=== PATIENT | female | born 1940 | race Caucasian/White ===

== ENCOUNTER 2019-06-26 09:17 | Outpatient (CLI) | payer MEDICARE, SELFPAY ==
--- NOTE | 2019-06-26 09:24 | XR_ITS ---
WS: [id number] Right knee, 3 views, 06/26/2019 Clinical Data: RIGHT KNEE PAIN Comparison: None. Findings: Patient has a right knee arthroplasty in position. The components appear to be in good position. No l oosening is seen. There are periarticular calcifications noted about the knee. The patella shows an a nterior superior spur. There is there are vascular calcifications medial to the medial femoral condyl e. No fractures or dislocations are seen XR/XR knee RT 3V* [id number] Impression: 1. Right knee arthroplasty. 2. Anterior superior patellar spur. 3. Periarticular calcifications some of which are vascular and some may be syno vial.
== END 2019-06-26 09:18 | disposition home or self-care (01) ==
LOC: RAD 09:22
PROVIDERS: Family Provider Family Medicine; PCP Family Medicine; Visit Provider Family Medicine
DX: M25.861 Other specified joint disorders, right knee (principal); M77.8 Other enthesopathies, not elsewhere classified; Z96.651 Presence of right artificial knee joint; M25.561 Pain in right knee
CPT/HCPCS: 73562

== ENCOUNTER → 2019-07-30 15:20 | Outpatient (BNVA) | payer MEDICARE, SELFPAY | PROVIDERS: Family Provider Family Medicine; PCP Family Medicine; Referring Provider Family Medicine; Visit Provider Orthopaedic Surgery | DX: M25.551 Pain in right hip (principal); M16.11 Unilateral primary osteoarthritis, right hip; Z96.651 Presence of right artificial knee joint | CPT/HCPCS: 72170 ==

== ENCOUNTER → 2019-08-15 09:25 | Outpatient (BNVA) | payer MEDICARE, SELFPAY | PROVIDERS: Family Provider Family Medicine; PCP Family Medicine; Referring Provider Orthopaedic Surgery; Visit Provider Anesthesiology Pain Medicine | DX: M16.11 Unilateral primary osteoarthritis, right hip (principal); M54.9 Dorsalgia, unspecified; Z96.651 Presence of right artificial knee joint; Z79.891 Long term (current) use of opiate analgesic | CPT/HCPCS: 99203; 99999 ==

== ENCOUNTER 2020-07-07 12:40 | Emergency (ER) | payer MEDICARE, SELFPAY ==
[2020-07-07 12:56] VITALS: BP 151/84; PULSE 68; RESP 14; TEMP 36.6; O2SAT 98; BMI 28.2
--- NOTE | 2020-07-07 13:11 | XR_ITS ---
WS: [id number] Exam: XR chest 1V portable [id number] Date/Time of Exam: 07/07/2020 1:25 PM Reason For Exam: sob No priors. The lungs are clear and fully inflated. Normal cardiomediastinal structures and bony eleme nts. No pleural effusions. XR/XR chest 1V portable [id number] IMPRESSION: 1. No acute cardiopulmonary finding.
--- NOTE | 2020-07-07 13:11 | ECG_ITS ---
[facility] Test Date: 2020-07-07 Pat Name: Idania Okeefe Department: Room: Gender: Female Can Tender: SVETLANA ALEXANDREB: 1940 Requested By: Juanito John Order Number: [id number] Reading MD: EUNICE GRANADOS Measurements Intervals [place] Rate: 67 P: 54 [place]: 144 QRS: 24 QRSD: 85 T: 8 QT: 397 QTc: 421 Interpretive Statements SINUS RHYTHM NONSPECIFIC T-WAVE ABNORMALITY No previous ECG available for comparison Electronically Signed On 07-07-2020 18:35:14 SHEEP RANCHER by EUNICE GRANADOS [id number]
--- NOTE | 2020-07-07 13:20 | USCV_ITS ---
Maldonado Idania Age: 80 Gender: F : 1940 Exam Date: 07/07/2020 13:51 Ordering Phys: Juanito John Technologist: Glo Regalado Exam Location: [facility] [place] Indication: PAIN IN RT CALF HISTORY: PAIN IN RT CALF PROCEDURES: Venous duplex imaging was performed in only the right lower extremity. The following venous structures were evaluated: common femoral vein, profunda vein, proximal portion of the greater saphenous vein, superficial femoral vein, and the popliteal vein. In addition, the posterior tibial and peroneal trunk and calf area were evaluated. Serial compression, augmentation maneuvers, and spectral Doppler flow evaluation were performed. FINDINGS: No DVT seen in any vessel examined CONCLUSIONS No evidence of right lower extremity DVT. Aravind Grimes MD (Electronically Signed) Final Date: 07 July 2020 16:52 S
--- NOTE | 2020-07-07 14:27 | ED_ITS ---
HPI - General Adult General: Chief complaint: General Medical Stated complaint: phy ref/sob Time Seen by Provider: 07/07/20 13:38 History of Present Illness: HPI narrative: 80-year-old female who presents to the emergency room complaining of right leg swelling. She had a revision of a right knee arthroplasty on May 02 has had swelling in the leg since she also is having shortness of breath although she denies any chest pain. States that minimal exertion she gets extremely short of breath. She not had any fever sweats chills nausea vomiting or diarrhea no anosmia. Onset (ago): week(s) Location: chest Radiation: non-radiation Severity: moderate Relieving factors: rest Exacerbating factors: movement Associated symptoms: Reports diaphoresis, dyspnea and short of breath; Deny chest pain, confusion, cough, decreased appetite, fevers/chills, headache(s), malaise, nausea, rash, palpitations, seizures, syncope, vomiting or weakness Treatments prior to arrival: none Review of Systems Const: Reports: diaphoresis; Denies: malaise ENMT: Denies: throat pain, ear or mastoid pain, nasal discharge or nasal congestion Card: Denies: chest pain, palpitations or syncope Resp: Reports: dyspnea GI: Denies: nausea or vomiting : Denies: flank pain, difficulty voiding, dysuria, urinary frequency or urinary urgency Skin/Breast: Denies: rash Neuro: Denies: headache(s) or confusion PFS ED PFSH: Family History Father Cancer Social History Smoking and tobacco status: never smoked Alcohol intake: never Caregiver/support person: Yes Lives independently: Yes History of recent travel: No Physical Exam Const: COMMON NORMALS: no acute distress GENERAL APPEARANCE: cooperative and comfortable ORIENTATION/CONSCIOUSNESS: Yes awake, Yes oriented to person, Yes oriented to place and Yes oriented to time HENMT: COMMON NORMALS: normocephalic, atraumatic, hearing grossly normal bilaterally, external ears normal, EAC's normal, TM's normal bilaterally, Normal nasal mucous membranes and turbinates present, moist oral mucous membranes and oropharynx normal HEAD & SCALP: normocephalic and atraumatic NOSE: Normal nasal mucous membranes and turbinates present EXTERNAL EAR: Yes external ears normal EXTERNAL AUDITORY CANAL: EAC's normal TYMPANIC MEMBRANE: TM's normal bilaterally Eye: COMMON NORMALS: Equal, round and reactive pupils present, EOMs intact bilaterally, conjunctivae normal and no scleral icterus CONJUNCTIVA: Yes conjunctivae normal PUPIL: Yes Equal, round and reactive pupils present Neck/C-Spine: COMMON NORMALS: full ROM, no lymphadenopathy, supple and no JVD Lymph: LYMPHATIC: no lymphadenopathy noted and no lymphedema noted Resp: COMMON NORMALS: normal respiratory effort, No retractions, No use of accessory muscles and clear to auscultation bilaterally AUSCULTATION: clear to auscultation bilaterally Cardio: COMMON NORMALS: no JVD, regular rate, regular rhythm and No murmurs present (Cardio) RATE: regular rate RHYTHM: regular rhythm GI: COMMON NORMALS: Soft to palpation and No hepatosplenomegaly present AUSCULTATION: Yes normoactive bowel sounds PALPATION: Yes Soft to palpation, No Tenderness to palpation present (GI), No Guarding due to palpation present (GI) and Yes No hepatosplenomegaly present Extremity: COMMON NORMALS: normal to inspection, capillary refill normal, no clubbing, cyanosis or edema, no calf tenderness and no pedal edema Neuro: SENSORIUM/ORIENTATION: Yes oriented to person, Yes oriented to place and Yes oriented to time Skin: COMMON NORMALS: no rashes or lesions noted GENERAL SKIN EXAM: no rashes or lesions noted Course 2 Vital Signs: Vital signs: Vital Signs Temperature 97.9 F 07/07/20 12:56 Pulse Rate 57 L 07/07/20 18:22 Respiratory Rate 18 07/07/20 18:22 Blood Pressure 149/95 07/07/20 18:22 Pulse Oximetry 97 07/07/20 18:22 MDM - General Adult MDM Narrative: Medical decision making narrative: Venous duplex negative. D- dimer is elevated so we did do a CTA of the chest no PE noted. We will go ahead and discharge her home we will can set her up for a sestamibi stress test return if has further problems. Lab Data: Labs: Lab Results 07/07/20 07/07/20 07/07/20 Range/Units 14:25 14:25 14:25 WBC 7.8 (4.0-10.0) 10^3/ uL RBC 4.35 (4.1-5.3) 10^6/u L Hgb 12.5 (11.5-15.3) g/dL Hct 41.6 (37.0-47.0) % MCV 95.6 (81-99) fL MCH 28.7 (28.0-34.0) pg MCHC 30.0 (30.0-36.0) g/dL RDW 13.1 (12.1-15.1) % Plt Count 169 (130-400) 10^3/c mm MPV 11.0 H (7.4-10.4) fL Neut % (Auto) 51.5 % Lymph % (Auto) 37.9 % [place] % (Auto) 5.6 % Eos % (Auto) 4.0 % Baso % (Auto) 1.0 % Neut # (Auto) 4.02 (1.8-7.7) 10^3/u L Lymph # (Auto) 3.0 (0.8-4.8) 10^3/u L [place] # (Auto) 0.4 (0.2-0.9) 10^3/u L Eos # (Auto) 0.3 (0.0-0.8) 10^3/u L Baso # (Auto) 0.1 (0.0-0.1) 10^3/u L Nucleated RBC % (a uto) 0 % Nucleated RBCs # 0.0 /100WBC D-Dimer 3.42 H (0-0.59) ug/mIFE U Sodium 141 (136-145) mmol/L Potassium 4.4 (3.5-5.1) mmol/L Chloride 104 (98-107) mmol/L Carbon Dioxide 26 (22-29) mmol/L Anion Gap 15.4 (5-19) BUN 18 (8-23) mg/dL Creatinine 0.6 (0.5-0.9) mg/dL GFR Calculation Not Reportable Glucose 96 (65-115) mg/dL Calculated Osmolal ity 294 (285-295) mOsm/k g Calcium 9.3 (8.5-10.5) mg/dL Total Bilirubin 1.1 (0.15-1.2) mg/dL AST 15 (0-32) U/L ALT 8 (0-33) U/L Alkaline Phosphata se 68 (35-105) IU/L Troponin T Baselin e (0-10) ng/L Troponin T 120 Min upper [place] (0-10) ng/L Delta Troponin T (0-10) ABS# NT-Pro-B Natriuret Pep 219 (0-450) pg/mL Total Protein 6.8 (6.6-8.7) g/dL Albumin 4.3 (3.5-5.2) g/dL Globulin 2.5 (1.3-4.6) g/dL 07/07/20 07/07/20 Range/Units 14:25 15:20 WBC (4.0-10.0) 10^3/ uL RBC (4.1-5.3) 10^6/u L Hgb (11.5-15.3) g/dL Hct (37.0-47.0) % MCV (81-99) fL MCH (28.0-34.0) pg MCHC (30.0-36.0) g/dL RDW (12.1-15.1) % Plt Count (130-400) 10^3/c mm MPV (7.4-10.4) fL Neut % (Auto) % Lymph % (Auto) % [place] % (Auto) % Eos % (Auto) % Baso % (Auto) % Neut # (Auto) (1.8-7.7) 10^3/u L Lymph # (Auto) (0.8-4.8) 10^3/u L [place] # (Auto) (0.2-0.9) 10^3/u L Eos # (Auto) (0.0-0.8) 10^3/u L Baso # (Auto) (0.0-0.1) 10^3/u L Nucleated RBC % (a uto) % Nucleated RBCs # /100WBC D-Dimer (0-0.59) ug/mIFE U Sodium (136-145) mmol/L Potassium (3.5-5.1) mmol/L Chloride (98-107) mmol/L Carbon Dioxide (22-29) mmol/L Anion Gap (5-19) BUN (8-23) mg/dL Creatinine (0.5-0.9) mg/dL GFR Calculation Glucose (65-115) mg/dL Calculated Osmolal ity (285-295) mOsm/k g Calcium (8.5-10.5) mg/dL Total Bilirubin (0.15-1.2) mg/dL AST (0-32) U/L ALT (0-33) U/L Alkaline Phosphata se (35-105) IU/L Troponin T Baselin e 9 (0-10) ng/L Troponin T 120 Min upper [place] 10.53 H (0-10) ng/L Delta Troponin T 1.53 (0-10) ABS# NT-Pro-B Natriuret Pep (0-450) pg/mL Total Protein (6.6-8.7) g/dL Albumin (3.5-5.2) g/dL Globulin (1.3-4.6) g/dL Discharge Plan Discharge Patient Disposition: Home Clinical Impression: Exertional dyspnea Condition: Stable Prescriptions: No Action pravastatin 20 mg tablet 20 mg PO DAILY@17 RF: 0 trazodone 150 mg tablet 150 mg PO BEDTIME@19 RF: 0 hydrocodone-acetaminophen 5-325 mg tablet 1 tab PO Q4H PRN (Reason: Pain) RF: 0 Travatan Z 0.004 % drops 1 drp ophthalmic (eye) BEDTIME RF: 0 Combigan 0.2-0.5 % drops 1 drp ophthalmic (eye) BID@07,17 RF: 0 Discharge Orders: Discharge ED (Routine); Ordered 07/07/20 Ordered By: Deven Pratt Referrals: Jer Cooper DO [Primary Care Provider] - Discharge Diet: Usual diet Discharge Activity: Increase activity as tolerated Coding Level of Care Code ED Seed Sales Manager for Chg Fwd Exam Comprehensive
[2020-07-07 14:42] LABS: Basophils # 0.1 10^3/uL (0.0-0.1); Eosinophils # 0.3 10^3/uL (0.0-0.8); Hematocrit 41.6 % (37.0-47.0); Hemoglobin 12.5 g/dL (11.5-15.3); Lymphocytes % 37.9 %; Mean Corpuscular Hemoglobin 28.7 pg (28.0-34.0); Mean Corpuscular Volume 95.6 fL (81-99); Monocytes # 0.4 10^3/uL (0.2-0.9); Monocytes % 5.6 %; Neutrophils # 4.02 10^3/uL (1.8-7.7); Neutrophils % 51.5 %; Nucleated Red Blood Cells % 0 %; Platelet Count 169 10^3/cmm (130-400); Red Blood Count 4.35 10^6/uL (4.1-5.3); Red Cell Distribution Width 13.1 % (12.1-15.1); White Blood Count 7.8 10^3/uL (4.0-10.0)
[2020-07-07 15:05] LABS: D Dimer 3.42 ug/mIFEU (0-0.59)
[2020-07-07 15:12] LABS: Troponin(5th) Baseline 9 ng/L (0-10)
--- NOTE | 2020-07-07 15:12 | ECG_ITS ---
[facility] Test Date: 2020-07-07 Pat Name: Idania Okeefe Department: Room: Gender: Female Er Nurse: : 1940 Requested By: Juanito John Order Number: [id number] Reading MD: EUNICE GRANADOS Measurements Intervals [place] Rate: 54 P: 22 [place]: 139 QRS: 10 QRSD: 89 T: 10 QT: 440 QTc: 420 Interpretive Statements SINUS BRADYCARDIA Compared to ECG 07/07/2020 12:54:51 Sinus rhythm no longer present T-wave abnormality no longer present Electronically Signed On 07-07-2020 18:37:49 BUTTONHOLE MAKER HAND by EUNICE GRANADOS [id number]
--- NOTE | 2020-07-07 15:18 | CTR_ITS ---
PROCEDURE INFORMATION: Exam: CT Angiography Chest With Contrast Exam date and time: 07/07/2020 5:33 PM Age: 80 years old Clinical indication: Shortness of breath; Additional info: Dyspnea TECHNIQUE: Imaging protocol: Computed tomographic angiography of the chest with intravenous contrast. 3D rendering (Not supervised by radiologist): MIP and/or 3D reconstructed images were created by the technologist. Radiation optimization: All CT scans at this facility use at least one of these dose optimization techniques: automated exposure control; mA and/or kV adjustment per patient size (includes targeted exams where dose is matched to clinical indication); or iterative reconstruction. Contrast material: OMNI 350; Contrast volume: 67 ml; Contrast route: INTRAVENOUS (IV); COMPARISON: CR XR chest 1V portable [id number] 07/07/2020 1:16 PM RADIATION DOSE METRICS: Total DLP (mGy-cm): 565.15 FINDINGS: Pulmonary arteries: Normal. No pulmonary emboli. Aorta: Unremarkable. No aortic aneurysm. No aortic dissection. Lungs: 4 mm nodule in the right upper lobe, image 17. Calcified granuloma in the left lower lobe. The lungs are otherwise clear. Pleural space: Unremarkable. No pneumothorax. No pleural effusion. Heart: Unremarkable. No cardiomegaly. No pericardial effusion. Mediastinal space: Hiatal hernia. Lymph nodes: Unremarkable. No enlarged lymph nodes. Gallbladder and bile ducts: Cholecystectomy. Prominence of the extrahepatic bile ducts is most likely reservoir effect. Bones/joints: Unremarkable. No acute fracture. Soft tissues: Unremarkable. CT/CT angio chest PE protcl [id number] IMPRESSION: 1. No evidence for pulmonary embolus. 2. 4 mm right upper lobe nodule. For patients at low risk (minimal or absent history of smoking and of other known risk factors), no routine follow-up is indicated. For patients at high risk (history of smoking or of other known risk factors), consider optional CT Chest at 12 months. (Reference: Nhan) References: Nhan Sommer et al. Guidelines for Management of Incidental Pulmonary Nodules Detected on CT Images: From the Fleischner Society 2017. Radiology. 2017;284(1):228-243. Radiation Dose CTDIVOL = (mGy): DLP = 565.15 (mGy-cm)
[2020-07-07 15:20] LABS: Alanine Aminotransferase 8 U/L (0-33); Albumin Level 4.3 g/dL (3.5-5.2); Alkaline Phosphatase 68 IU/L (35-105); Anion Gap 15.4 (5-19); Aspartate Amino Transferase 15 U/L (0-32); Blood Urea Nitrogen 18 mg/dL (8-23); Calcium 9.3 mg/dL (8.5-10.5); Carbon Dioxide 26 mmol/L (22-29); Chloride 104 mmol/L (98-107); Globulin 2.5 g/dL (1.3-4.6); Glucose 96 mg/dL (65-115); NT Pro B Type Natriuretic Pept 219 pg/mL (0-450); Osmolality Calculated 294 mOsm/kg (285-295); Potassium 4.4 mmol/L (3.5-5.1); Sodium 141 mmol/L (136-145); Total Bilirubin 1.1 mg/dL (0.15-1.2); Total Protein 6.8 g/dL (6.6-8.7)
[2020-07-07 17:18] LABS: Troponin 5 2HR 10.53 ng/L (0-10); Troponin 5 2HR Delta 1.53 ABS# (0-10)
[2020-07-07 17:27] VITALS: BP 143/101; PULSE 78; RESP 20; O2SAT 97
[2020-07-07] MEDS: iohexol 350 mg/mL 100 mL Btl IV (17:43)
[2020-07-07 18:09] VITALS: BP 149/95; PULSE 57; RESP 18; O2SAT 97
[2020-07-07 18:22] VITALS: BP 149/95; PULSE 57; RESP 18; O2SAT 97
--- NOTE | 2020-07-08 10:23 | DCPLANNER ---
international accounting manager had message to schedule an outpatient stress test. international accounting manager faxed order to centralized scheduling, will call for appointment information.
--- NOTE | 2020-07-15 15:19 | DCPLANNER ---
Patient has a follow up appointment scheduled for , July 24, 2020 at 9:15 for an out patient stress test.
--- NOTE | 2020-09-03 12:39 | DCPLANNER ---
Patient had a follow up appointment scheduled for 07.24.20 for a stress test - patient did attend appointment.
== END 2020-07-07 18:24 | disposition home or self-care (01) ==
PROVIDERS: Nurse Practitioner Family; Emergency Provider Family Medicine; PCP Family Medicine
DX: R06.09 Other forms of dyspnea (principal)
CPT/HCPCS: 12345; 36415; 71045; 71275; 80053; 83880; 84484; 85025; 85378; 93005; 93971; 99282; 99283; Q9967

== ENCOUNTER 2020-08-06 10:39 | Outpatient (CLI) | payer MEDICARE, SELFPAY ==
--- NOTE | 2020-08-06 10:46 | USCV_ITS ---
Idania Okeefe Age: 80 Gender: F : 1940 Exam Date: 08/06/2020 11:01 Ordering Phys: Jer Cooper DO Technologist: Angelica Benitez Exam Location: [facility] [place] Indication: FATIGUE/DYSPNEA BP: 142 / 64 HR: 57 Rhythm: Sinus Technical Quality: Adequate MEASUREMENTS (Male / Female) Normal Values 2D ECHO LV Diastolic Diameter PLAX 4.3 cm 4.2 - 5.9 / 3.9 - 5.3 cm LV Systolic Diameter PLAX 3.3 cm LV Chamber Size 2.5 cm IVS Diastolic Thickness 1.1 cm 0.6 - 1.0 / 0.6 - 0.9 cm IVS Systolic Thickness 1.7 cm LVPW Diastolic Thickness 1.6 cm 0.6 - 1.0 / 0.6 - 0.9 cm LVPW Systolic Thickness 1.6 cm RV Chamber Size 2.4 cm LVOT Diameter 2.1 cm LV Ejection Fraction 2D Teich 46.2 % LV Ejection Fraction MOD 2C 54.0 % LV Ejection Fraction 2C AL 55.5 % LA Diameter 3.6 cm LA Width 3.5 cm LA Height 4.6 cm RA Width 2.3 cm RA Height 3.8 cm Aorta at Sinotubular Diameter 2.4 cm M-MODE LV Diastolic Diameter MM 4.1 cm 4.2 - 5.9 / 3.9 - 5.3 cm LV Systolic Diameter MM 2.6 cm LV Ejection Fraction MM Teich 66.2 % IVS Diastolic Thickness MM 1.1 cm 0.6 - 1.0 / 0.6 - 0.9 cm IVS Systolic Thickness MM 1.4 cm LVPW Diastolic Thickness MM 1.4 cm 0.6 - 1.0 / 0.6 - 0.9 cm LVPW Systolic Thickness MM 1.3 cm Aortic Annulus Diameter 3.2 cm LA Ao Ratio MM 1.1 MV E Point Septal Separation 0.7 cm DOPPLER AV Peak Velocity 125.0 cm/s LVOT Peak Velocity 104.0 cm/s AV Area Cont Eq vti 3.0 cm squared AV Area Cont Eq pk 2.8 cm squared MV Area PHT 3.5 cm squared Mitral E to A Ratio 0.7 MV E' Velocity 42.0 cm/s Mitral E to MV E' Ratio 6.3 Mitral E to LV E' Lateral Ratio 6.6 Mitral E to LV E' Septal Ratio 6.0 TR Peak Velocity 189.6 cm/s TR Peak Gradient 14.4 mmHg TV Peak E Velocity 71.0 cm/s Right Atrial Pressure 3.0 mmHg Pulmonary Artery Systolic Pressu 17.4 mmHg PV Peak Velocity 118.0 cm/s RV Acceleration Time 0.1 s RV Ejection Time 0.5 s RV AcT/ET 0.2 FINDINGS Left Ventricle Normal left ventricular size and systolic function, EF 56 %. No regional wall motion abnormalities. Grade III/IV diastolic dysfunction (restrictive filling pattern), severely elevated filling pressures. Right Ventricle Normal right ventricular size and systolic function. Transverse echodense structures towards the apex of the right ventricle Right Atrium The right atrium is normal in size. Left Atrium Mildly increased left atrial size. Mitral Valve Thickened mitral valve. Mild mitral annular calcification. Trace mitral valve regurgitation. Aortic Valve Thickened aortic valve. Tricuspid Valve Trace tricuspid valve regurgitation. Pulmonic Valve Structurally normal pulmonic valve without significant stenosis. There is no pulmonic regurgitation. Pericardium Normal pericardium without effusion. Aorta Normal ascending aorta dimension. CONCLUSIONS Normal left ventricular size and systolic function, EF 56 %. Grade III/IV diastolic dysfunction (restrictive filling pattern), severely elevated filling pressures. No regional wall motion abnormalities. Thickened mitral valve. Mild mitral annular calcification. Mildly dilated left atrium Trace mitral valve regurgitation. Trace tricuspid valve regurgitation. Mildly increased left atrial size. There is no pericardial effusion. There are no intracardiac masses. Dr Allison Ayala MD FAC (Electronically Signed) Final Date: 06 August 2020 14:43 S
== END 2020-08-06 10:40 | disposition home or self-care (01) ==
LOC: US 10:41
PROVIDERS: PCP Family Medicine; Visit Provider Family Medicine
DX: R53.83 Other fatigue (principal); R06.00 Dyspnea, unspecified; I08.3 Combined rheumatic disorders of mitral, aortic and tricuspid valves
CPT/HCPCS: 93306

== ENCOUNTER 2020-08-08 08:52 | Outpatient (CLI) | payer MEDICARE, SELFPAY ==
[2020-08-08 09:01] VITALS: BMI 28.2
--- NOTE | 2020-08-08 09:10 | ECG_ITS ---
[facility] Test Date: 2020-08-08 Pat Name: Idania Okeefe Department: Room: Gender: Female Acting Manager: : 1940 Requested By: Deven Le Order Number: [id number] Paresh MD: Maile Echeverria M.D. Interpretive Statements NAME OF STUDY: LEXISCAN SESTAMIBI STRESS TEST INDICATION: Exertional dyspnea PROCEDURE: At the baseline, the blood pressure was 128/73 mmHg, oxygen saturation 97% with a heart rate of 48 bpm. The electrocardiogram showed sinus bradycardia, normal axis with normal ST and T's. The Lexiscan was infused over a period of 20 seconds. A total of 0.4 milligrams of Lexiscan was infused. The stress phase was continued for a total of 5 minutes. Heart rate at the end of the stress phase was 65 bpm, oxygen saturation 98% with a blood pressure 144/67 mmHg. The EKG at the peak infusion revealed no significant ST-T wave changes. Sestamibi was injected 20 seconds after the Lexiscan infusion. Blood pressure at the end of the recovery phase was 144/66 mmHg, oxygen saturation 98% with a heart rate of 61 beats per minute. CONCLUSION: 1. No significant EKG changes with the LexiScan infusion. 2. No LexiScan induced chest pain or cardiac arrhythmia. 3. Normal blood pressure and heart rate response. 4. Sestamibi/sestamibi perfusion scan pending; see separate report. Electronically Signed On 08-11-2020 17:44:55 INSPECTOR BALANCE TRUING by Maile Echeverria M.D. [email or web address] [email or web address]/[id number]
--- NOTE | 2020-08-08 09:11 | NMCV_ITS ---
NM jonel perf SPECT r/s* [id number] Idania Okeefe Age: 80 Gender: F : 1940 Exam Date: 08/08/2020 09:52 Ordering Phys: Deven Pratt DO Technologist: RUBY Casas Exam Location: [facility] Indications: EXERTIONAL DYSPNEA STRESS TEST Please see separate stress test report in [facility] for full findings IMAGE PROTOCOL Rest/Stress 1 Lexiscan Day Radiopharmaceutical Dose (mCi) Administration Site Administered by Rest: Tc-99m 10.6 IV RUBY Cruz Sestamibi Stress:Tc-99m 32.6 IV RUBY Casas Sestamihuyen Rest: 08-Aug-2020 60 Discovery 630 Stress: 08-Aug-2020 30 Discovery 630 0.4mg Lexiscan. Supine position only as patient was unable to lay prone. SPECT RESULTS Technical Quality: Excellent Raw Data Analysis: Normal Image Corrections: No attenuation or motion correction applied Summed Stress Score: 6 Summed Rest Score: 3 Summed Difference Score: 3 PERFUSION FINDINGS Medium sized perfusion abnormality of mild severity of mid to apical inferior and apical lateral wall on rest images with reversibility noted in basal to mid inferolateral and apical lateral da silva on stress images. FUNCTIONAL RESULTS (calculated via Gated SPECT) Stress Image LV EF (%): 69 Stress EDV (mL):98 TID: 0.95 Stress ESV (mL):30 FUNCTIONAL FINDINGS: The left ventricle is normal in size. Transient Ischemia Dilatation of 0.95. There is normal left ventricular systolic function. The left ventricular ejection fraction is normal with a value of 69%. There is normal left ventricular wall thickening with no regional wall motion abnormality. Normal end-diastolic and end-systolic volumes. IMPRESSIONS 1. Medium size perfusion abnormality of mild severity of mid to apical inferior and apical lateral da silva with reversibility noted in basal to mid inferolateral and apical lateral da silva on stress images. 2. This may represent attenuation artifact in absence of prone imaging and no regional wall motion abnormality. However, myocardial infarction in right coronary artery and ischemia in circumflex artery territory cannot be completely ruled out. Clinical correlation is advised. 3. Overall left ventricular systolic function is normal without regional wall motion abnormalities. 4. The left ventricular ejection fraction is normal with a value of 69%. 5. No prior similar studies to compare. Maile Echeverria MD (Electronically Signed) Final Date: 12 August 2020 19:40 S
[2020-08-08] MEDS: regadenoson 0.4 Mg/5 ml Syringe IVP (10:55)
[2020-08-08 11:18] VITALS: BP 144/66; PULSE 61
== END 2020-08-08 08:53 | disposition home or self-care (01) ==
LOC: CDL 08:55
PROVIDERS: PCP Family Medicine; Visit Provider Family Medicine
DX: R06.09 Other forms of dyspnea (principal)
CPT/HCPCS: 78452; 93017; A9500; J2785

== ENCOUNTER → 2020-09-24 09:34 | Outpatient (BNVA) | payer MEDICARE, SELFPAY | PROVIDERS: PCP Family Medicine; Visit Provider Family Medicine | DX: Z01.812 Encounter for preprocedural laboratory examination (principal); Z20.822 Contact with and (suspected) exposure to COVID-19 | CPT/HCPCS: 87635 ==

== ENCOUNTER 2020-09-29 07:06 | Outpatient (CLI) | payer MEDICARE, SELFPAY ==
--- NOTE | 2020-09-29 09:56 | PFTS_ITS ---
Date of Study:09/29/20 Date of Dictation: MECHANICS: Forced vital capacity (FVC) is normal. Forced expiratory volume in one second (FEV1) is normal. FEV1/FVC is normal. FLOW VOLUME LOOP: Normal. LUNG VOLUMES: Total lung capacity (TLC) is normal. Residual volume (RV) is normal. DIFFUSING CAPACITY FOR CARBON MONOXIDE: Normal. INTERPRETATION: The pulmonary function tests are normal. MTDD
== END 2020-09-29 07:07 | disposition home or self-care (01) ==
LOC: RT 07:08
PROVIDERS: PCP Family Medicine; Visit Provider Family Medicine
DX: R06.00 Dyspnea, unspecified (principal); R09.02 Hypoxemia
CPT/HCPCS: 94010; 94726; 94729

== ENCOUNTER → 2021-08-14 09:00 | Outpatient (BNVA) | payer MEDICARE, SELFPAY | PROVIDERS: PCP Family Medicine; Visit Provider Internal Medicine | DX: E78.5 Hyperlipidemia, unspecified (principal); R06.02 Shortness of breath; R06.00 Dyspnea, unspecified | CPT/HCPCS: 99214 ==

== ENCOUNTER → 2022-02-12 09:27 | Outpatient (BNVA) | payer MEDICARE, SELFPAY | PROVIDERS: PCP Family Medicine; Visit Provider Internal Medicine | DX: R06.02 Shortness of breath (principal); R00.2 Palpitations; R06.00 Dyspnea, unspecified; E78.5 Hyperlipidemia, unspecified | CPT/HCPCS: 99214 ==

== ENCOUNTER 2022-02-19 14:36 | Emergency (ER) | payer MEDICARE, SELFPAY ==
[2022-02-19 14:50] VITALS: BP 174/78; PULSE 56; RESP 16; TEMP 36.6; O2SAT 98; BMI 29.5
[2022-02-19 15:13] VITALS: BP 171/77; PULSE 65; RESP 17; TEMP 36.6; O2SAT 98
--- NOTE | 2022-02-19 16:02 | W.ED.GENADLT ---
HPI - General Adult General: Chief complaint: General Medical Stated complaint: high blood pressure, from clinic Time Seen by Provider: 02/19/22 15:44 Source: patient Mode of arrival: ambulatory History of Present Illness: 82-year-old female presents emergency room she was at a local clinic and she is noted to have an elevated blood pressure and heart rate in the 50s, states she generally does not feel well but has not had any lightheadedness or dizziness. She denies any chest pain or shortness of breath. No fever sweats chills cough. No history of anemia no history of any hematochezia melena hematemesis or coffee-ground emesis. She was previously treated for hypertension but her blood pressure seem to get better and she stopped the medications. Onset (ago): unknown Severity: mild Relieving factors: none Exacerbating factors: none Associated symptoms: Reports weakness; Deny chest pain, confusion, cough, diaphoresis, decreased appetite, dyspnea, fevers/chills, headache(s), malaise, nausea, rash, palpitations, seizures, short of breath, syncope or vomiting Treatments prior to arrival: none Review of Systems Const: Denies: fever(s), chills, fatigue, malaise or diaphoresis Card: Denies: chest pain, palpitations or syncope Resp: Denies: dyspnea GI: Denies: abdominal pain, nausea or vomiting : Denies: flank pain, difficulty voiding, dysuria or urinary frequency Skin/Breast: Denies: rash Neuro: Denies: headache(s) or confusion PFS ED PFSH: Medical History Chronic low back pain Hyperlipidemia Long-term current use of opiate analgesic Pain management contract signed Surgical History History of bladder surgery History of total right knee replacement DOS: 11-15-[address] [facility] Hx of carpal tunnel repair Hx of cholecystectomy Hx of hysterectomy Family History Father Cancer Social History Smoking and tobacco status: never smoked Alcohol intake: never Caregiver/support person: Yes Lives independently: Yes History of recent travel: No Physical Exam Const: GENERAL APPEARANCE: cooperative and comfortable ORIENTATION/CONSCIOUSNESS: Yes awake, Yes oriented to person, Yes oriented to place and Yes oriented to time HENMT: COMMON NORMALS: normocephalic, atraumatic and hearing grossly normal bilaterally HEAD & SCALP: normocephalic and atraumatic Resp: COMMON NORMALS: normal respiratory effort, No retractions, No use of accessory muscles and clear to auscultation bilaterally AUSCULTATION: clear to auscultation bilaterally Cardio: COMMON NORMALS: regular rate, regular rhythm and No murmurs present (Cardio) RATE: regular rate RHYTHM: regular rhythm GI: COMMON NORMALS: Soft to palpation and No hepatosplenomegaly present AUSCULTATION: Yes normoactive bowel sounds PALPATION: Yes Soft to palpation, No Tenderness to palpation present (GI), No Guarding due to palpation present (GI) and Yes No hepatosplenomegaly present : COMMON NORMALS: Yes no CVA tenderness BLADDER/KIDNEY EXAM: Yes no CVA tenderness Back/Pelvis: COMMON NORMALS: no CVA tenderness Extremity: COMMON NORMALS: normal to inspection, capillary refill normal, no clubbing, cyanosis or edema, no calf tenderness and no pedal edema Neuro: SENSORIUM/ORIENTATION: Yes oriented to person, Yes oriented to place and Yes oriented to time Skin: COMMON NORMALS: no rashes or lesions noted GENERAL SKIN EXAM: no rashes or lesions noted Course Vital Signs: Vital signs: Vital Signs Temperature 97.9 F 02/19/22 17:18 Pulse Rate 68 02/19/22 17:18 Respiratory Rate 17 02/19/22 17:18 Blood Pressure 171/99 02/19/22 17:18 Pulse Oximetry 98 02/19/22 17:18 Oxygen Delivery Me thod 02/19/22 16:51 MDM - General Adult Medical Decision Making Labs imaging and EKG reviewed. No acute findings. While her blood pressure is elevated at this time do not recommend adding any medications in this setting follow-up with primary care return if has problems. Continue current prescribed medications. Medical Records I reviewed the patient's medical records. Lab Data I reviewed the patient's lab results. Discharge Plan Discharge Patient Disposition: Home Clinical Impression: Benign essential HTN Condition: Stable Prescriptions: No Action pravastatin 20 mg tablet 20 mg PO DAILY@17 trazodone 150 mg tablet 150 mg PO BEDTIME@19 aspirin [Adult Low Dose Aspirin] 81 mg tablet,delayed release (DR/EC) 81 mg PO DAILY Qty: 90 0RF furosemide [Lasix] 20 mg tablet 20 mg PO BID Qty: 180 3RF travoprost [Travatan Z] 0.004 % drops 1 drp ophthalmic (eye) BEDTIME Rx Instructions: (both eyes) brimonidine-timolol [Combigan] 0.2-0.5 % drops 1 drp ophthalmic (eye) BID@07,17 Rx Instructions: (both eyes) polymyxin B sulf-trimethoprim 10,000 unit- 1 mg/mL drops 1 drp ophthalmic (eye) TID Rx Instructions: RIGHT EYE PreserVision AREDS-2 250-90-40-1 mg Capsule 1 tab PO BID Discharge Orders: Discharge ED (Routine); Ordered 02/19/22 Ordered By: Deven Pratt Referrals: Jer Cooper, [Primary Care Provider] - Discharge Diet: Usual diet Discharge Activity: Resume usual activity Patient Instructions: Opioid Safety Coding 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
[2022-02-19 16:13] VITALS: BP 168/71; PULSE 65; RESP 17; TEMP 36.6; O2SAT 98
[2022-02-19] MEDS: amlodipine 5 mg Tablet PO (16:50)
[2022-02-19 16:51] VITALS: BP 168/71; PULSE 65; RESP 17; TEMP 36.6; O2SAT 98
[2022-02-19 17:18] VITALS: BP 171/99; PULSE 68; RESP 17; TEMP 36.6; O2SAT 98
== END 2022-02-19 17:20 | disposition home or self-care (01) ==
PROVIDERS: Emergency Provider Family Medicine; PCP Family Medicine
DX: I10 Essential (primary) hypertension (principal); Z79.82 Long term (current) use of aspirin; E78.5 Hyperlipidemia, unspecified
CPT/HCPCS: 99283

== ENCOUNTER → 2022-02-23 10:09 | Outpatient (BNVA) | payer MEDICARE, SELFPAY | PROVIDERS: PCP Family Medicine; Visit Provider Family Medicine | DX: I10 Essential (primary) hypertension (principal); R53.83 Other fatigue; E78.5 Hyperlipidemia, unspecified | CPT/HCPCS: 80053; 84443; 85025 ==

== ENCOUNTER → 2022-05-18 08:31 | Outpatient (BNVA) | payer MEDICARE, SELFPAY | PROVIDERS: PCP Family Medicine; Visit Provider Clinical Nurse Specialist Adult Health | DX: N30.00 Acute cystitis without hematuria (principal) | CPT/HCPCS: 81000; 87077; 87086; 87184 ==

== ENCOUNTER → 2022-06-22 13:21 | Outpatient (BNVA) | payer MEDICARE, SELFPAY | PROVIDERS: PCP Family Medicine; Visit Provider Family Medicine | DX: M06.9 Rheumatoid arthritis, unspecified (principal); E78.5 Hyperlipidemia, unspecified; R53.83 Other fatigue; R06.00 Dyspnea, unspecified | CPT/HCPCS: 80053; 80061; 82607; 84443; 85025 ==

== ENCOUNTER → 2022-10-12 10:53 | Outpatient (BNVA) | payer MEDICARE, SELFPAY | PROVIDERS: PCP Family Medicine; Visit Provider Family Medicine | DX: Z01.818 Encounter for other preprocedural examination (principal); R53.83 Other fatigue; R06.00 Dyspnea, unspecified; Z79.899 Other long term (current) drug therapy | CPT/HCPCS: 80053; 82607; 84443; 85025 ==

== ENCOUNTER 2022-11-19 16:47 | Emergency (ER) | payer MEDICARE, SELFPAY ==
[2022-11-19 16:54] VITALS: BP 156/87; PULSE 71; RESP 16; TEMP 36.3; O2SAT 95; BMI 28.1
--- NOTE | 2022-11-19 17:30 | XRR_ITS ---
PROCEDURE INFORMATION: Exam: XR Lumbosacral Spine Exam date and time: 11/19/2022 5:51 PM Age: 82 years old Clinical indication: Pain; Lumbago with sciatica; Left; Additional info: Low back pain TECHNIQUE: Imaging protocol: Radiologic exam of the lumbosacral spine. Views: 2 or 3 views. COMPARISON: CR XR pelvis 1-2V* [id number] 07/30/2019 3:26 PM FINDINGS: Bones/joints: Interval right total hip replacement. Dextroscoliosis. Moderate multilevel spine degenerative changes including degenerative disc disease, spondylosis and facet degenerative changes. Soft tissues: Unremarkable. Organs: Surgical clips in the gallbladder fossa consistent with cholecystectomy. Vasculature: Calcification of the abdominal aorta and/or iliac arteries consistent with atherosclerotic vessel disease. XR/XR lumbar spine 2-3V* [id number] IMPRESSION: No acute findings.
--- NOTE | 2022-11-19 17:31 | ED_ITS ---
HPI - Extremity Problem General: Chief complaint: Extremity Problem,Nontraumatic Stated complaint: Pain in Right leg Time Seen by Provider: 11/19/22 17:01 History of Present Illness: Patient is a an 82-year-old female comes to the ED with back pain that radiates down left hip and left leg. Patient states that her symptoms started approximately 10 days ago. She was having some pain in the left lower back that radiated down to her left hip. She went and saw all her PCP and they diagnosed her with a muscle strain of her lower back. Approximately 6 days ago she started developing pain that radiates do patient states for the past several days she has to ambulate with a walker due to the pain in her left leg when she ambulates. she is also started having some left foot numbness and tingling. Symptoms worsen when she gets up and ambulates. Denies any fall or any injury to cause symptoms. Associated symptoms: Deny chest pain, fever(s) or rash Review of Systems Const: Denies: fever(s), chills or fatigue Eyes: Denies: change in vision or eye discomfort ENMT: Denies: throat pain, odynophagia, nasal discharge or nasal congestion Card: Denies: chest pain, palpitations, edema, swelling of feet/ankles, dyspnea on exertion or orthopnea Resp: Denies: dyspnea, productive cough or non-productive cough GI: Denies: abdominal pain, nausea, vomiting, diarrhea, constipation or hematochezia : Denies: flank pain, dysuria or hematuria Musc: Reports: back pain and extremity pain (Pain radiating down left leg); Denies: neck pain or extremity swelling Skin/Breast: Denies: rash or new lesions Neuro: Reports: sensory changes (Left foot numbness/tingling sensation); Denies: headache(s), numbness in extremities or weakness in extremities PFS ED PFSH: Medical History Chronic low back pain Hyperlipidemia Long-term current use of opiate analgesic Pain management contract signed Rheumatoid arthritis Surgical History History of bladder surgery History of total right knee replacement DOS: 11-15-[address] Shaun Partida MD at [facility]. Hx of carpal tunnel repair Hx of cholecystectomy Hx of hysterectomy Family History Father Cancer Social History Smoking and tobacco status: never smoked Alcohol intake: never Substance/Drug Use: never Caregiver/support person: Yes Lives independently: Yes Physical Exam Narrative: EXAM NARRATIVE: Patient is sitting on exam bed and all of her movements are very stiff and slow especially when going from laying to sitting or change in any positions. Const: COMMON NORMALS: no acute distress, patient oriented x3 and alert HENMT: COMMON NORMALS: normocephalic HEAD & SCALP: normocephalic MOUTH: Normal oral and palatal mucosa present THROAT: posterior oropharynx normal and uvula midline Neck/C-Spine: COMMON NORMALS: supple GENERAL: Yes normal visual inspection Resp: COMMON NORMALS: normal respiratory effort, No retractions, No use of accessory muscles and clear to auscultation bilaterally AUSCULTATION: clear to auscultation bilaterally Cardio: COMMON NORMALS: regular rate, regular rhythm, S1 normal heart sound present, S2 normal heart sound present, No gallops present (Cardio), No clicks present (Cardio), No murmurs present (Cardio) and Peripheral pulses 2+ throughout RATE: regular rate RHYTHM: regular rhythm HEART SOUNDS: S1 normal heart sound present and S2 normal heart sound present PERIPHERAL PULSES: Peripheral pulses 2+ throughout GI: COMMON NORMALS: Normal to inspection, nondistended, normoactive bowel sounds present, Soft to palpation, non-tender and no masses PALPATION: Yes Soft to palpation : COMMON NORMALS: Yes no CVA tenderness BLADDER/KIDNEY EXAM: Yes no CVA tenderness Back/Pelvis: COMMON NORMALS: no CVA tenderness LUMBAR SPINE/LOWER BACK: Yes pain with ROM, No lumbar spinal tenderness and Yes paraspinal muscle tenderness Lumbar paraspinal muscle tenderness: bilateral Bilateral lumbar paraspinal muscle tenderness: L4 and L5 Extremity: COMMON NORMALS: normal to inspection Neuro: COMMON NORMALS: patient oriented x3 SENSORIUM/ORIENTATION: Yes alert GAIT: Yes Normal gait present Skin: GENERAL SKIN EXAM: dry skin Course Vital Signs: Vital signs: Vital Signs Temperature 97.4 F L 11/19/22 16:54 Pulse Rate 71 06/09/23 16:54 Respiratory Rate 16 11/19/22 16:54 Blood Pressure 156/87 11/19/22 16:54 Pulse Oximetry 95 11/19/22 16:54 Oxygen Delivery Me thod Room Air 11/19/22 16:54 MDM - Extremity (Nontraumatic) Medical Decision Making Patient is a an 82-year-old female comes to the ED with back pain that radiates down left hip and left leg. Patient states that her symptoms started approximately 10 days ago. She was having some pain in the left lower back that radiated down to her left hip. She went and saw all her PCP and they diagnosed her with a muscle strain of her lower back. Approximately 6 days ago she started developing pain that radiates do patient states for the past several days she has to ambulate with a walker due to the pain in her left leg when she ambulates. she is also started having some left foot numbness and tingling. Symptoms worsen when she gets up and ambulates. Denies any fall or any injury to cause symptoms. Vitals are stable. Exam shows a patient sitting on exam bed in no acute distress. Patient is sitting on exam bed and all of her movements are very stiff and slow especially when going from laying to sitting or change in any positions. No CVA tenderness noted. Patient has some bilateral lumbar paraspinal muscle tenderness around L4 and L5 rest of exam is benign. X-ray of lumbar spine showed no acute fractures or findings. Patient was given dose of Toradol and Decadron while here in the ED. She was stable for discharge home and diagnosed with lumbar radiculopathy. She was discharged home with a prescription for a muscle relaxer, NSAID and Medrol Dosepak. Told to follow-up with PCP in the next week for reevaluation. Return to ED precautions given. Patient understood and agreed with plan. Lab Data Radiology Impressions Lumbar Spine X-Ray 11/19/22 17:30 IMPRESSION: No acute findings. Discharge Plan Discharge Patient Disposition: Home Clinical Impression: Lumbar radiculopathy Condition: Stable Prescriptions: New ibuprofen 600 mg tablet 600 mg PO Q8H PRN (Reason: pain) Qty: 20 0RF Medrol ([place]) 4 mg tablets,dose pack See Rx Instructions .ROUTE .COMPLEX Qty: 21 0RF Rx Instructions: orally per package directions methocarbamol 750 mg tablet 750 mg PO Q8H PRN (Reason: Muscle spasms and pain) Qty: 20 0RF No Action aspirin [Adult Low Dose Aspirin] 81 mg tablet,delayed release (DR/EC) 81 mg PO DAILY Qty: 90 0RF sulfamethoxazole-trimethoprim [Bactrim DS] 800-160 mg tablet 1 tab PO Q12H 5 Days Qty: 10 0RF furosemide [Lasix] 20 mg tablet 20 mg PO BID Qty: 180 3RF pravastatin 20 mg tablet See Rx Instructions .ROUTE .COMPLEX Qty: 90 3RF Dose Instruction: TAKE 1 TABLET EVERY NIGHT FOR LIPIDS Rx Instructions: TAKE 1 TABLET EVERY NIGHT FOR LIPIDS trazodone 150 mg tablet See Rx Instructions .ROUTE .COMPLEX Qty: 90 3RF Dose Instruction: TAKE 1 TABLET BY MOUTH AT BEDTIME FOR SLEEP/DEPRESSION Rx Instructions: TAKE 1 TABLET BY MOUTH AT BEDTIME FOR SLEEP/DEPRESSION travoprost [Travatan Z] 0.004 % drops 1 drp ophthalmic (eye) BEDTIME Rx Instructions: (both eyes) brimonidine-timolol [Combigan] 0.2-0.5 % drops 1 drp ophthalmic (eye) BID@,17 Rx Instructions: (both eyes) polymyxin B sulf-trimethoprim 10,000 unit- 1 mg/mL drops 1 drp ophthalmic (eye) TID Rx Instructions: RIGHT EYE PreserVision AREDS-2 250-90-40-1 mg Capsule 1 tab PO BID Discharge Orders: Discharge ED (Routine); Ordered 11/19/22 Ordered By: Ebenezer Adam Referrals: Jer Cooper DO [Primary Care Provider] - Discharge Diet: Regular Discharge Activity: Increase activity as tolerated Patient Instructions: Lumbar Radiculopathy (ED) Activity Restrictions/Additional Instructions: Follow-up with medical provider as directed in the next 5-7 days. Take medications as prescribed. Stretch out lower back and hips daily. Return to the ER or your medical provider if condition worsens. Please read and understand discharge instructions. Thank you for choosing [facility] for your healthcare needs today. Please realize this is an emergency room and that we are providing you with a medical screening exam and this may not be complete and all inclusive of all the testing and or work up that you may need to determine your ailment or severity of your illness. It is very important that you follow up as instructed or that you return to the Emergency Department should you have concerns or if your condition changes or worsens in any way. 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
[2022-11-19] MEDS: dexamethasone 10 mg/mL INJ IM (17:40)
[2022-11-19] MEDS: ketorolac 60 mg/2 mL INJ IM (17:40)
== END 2022-11-19 19:29 | disposition home or self-care (01) ==
PROVIDERS: Emergency Provider Physician Assistant; PCP Family Medicine
DX: M54.16 Radiculopathy, lumbar region (principal); Z79.82 Long term (current) use of aspirin; E78.5 Hyperlipidemia, unspecified
CPT/HCPCS: 72100; 96372; 99284; J1100; J1885

== ENCOUNTER 2022-12-01 14:24 | Outpatient (CLI) | payer MEDICARE, SELFPAY ==
--- NOTE | 2022-12-01 14:30 | MR_ITS ---
WS: [id number] MRI LUMBAR SPINE NONCONTRAST HISTORY: M54.16 - Radiculopathy, lumbar region COMPARISON: None available. TECHNIQUE: Sagittal and axial multisequence imaging is submitted. Increase in thoracic kyphosis. Rotoscoliosis with increase in the lumbar lordosis. Disc spaces are narrowed throughout the lumbar spine with osteophytic ridging. L1 retrolisthesis by 5 .5 mm. L2 retrolisthesis by 3.4 mm and L5 anterolisthesis by 2.3 mm. No marrow edema or fractures. Conus terminates normally at L1. L1-L2: Marked osteophytic ridging and facet arthritis. Retrolisthesis of L1. Broad-based LEFT paracen tral and foraminal disc protrusion deformity of the LEFT lateral thecal sac most significant upon the traversing LEFT L2 nerve root. Moderate bilateral foraminal stenosis with central stenosis. L2-L3: Diffuse annular disc bulging, osteophytic ridging and facet disease. Severe central, bilateral subarticular recess and moderate foraminal stenosis. L3-L4: Mild annular disc bulging with ligamentum flavum and facet arthritis. Moderate central, bilate ral subarticular recess and mild foraminal stenosis. L4-L5: Diffuse annular disc bulging with severe ligamentum flavum and facet arthritis. Severe central , bilateral subarticular recess. Moderate to severe RIGHT foraminal and mild LEFT foraminal stenosis. L5-S1: Diffuse annular disc bulging with osteophytic ridging. Marked ligamentum flavum and facet arth ritis. Moderate central with bilateral severe subarticular recess and RIGHT foraminal stenosis. Mild LEFT foraminal stenosis. There is significant contact and encroachment upon the S1 nerve roots. MR/MR lumbar spine wo con* [id number] IMPRESSION: 1. Advanced degenerative disc disease and spondylosis throughout the lumbar sp ine. Multilevel areas of central, foraminal and subarticular recess stenosis. 2. L2-3 severe central, bilateral subarticular recess and moderate foraminal s tenosis. 3. L3-4: Moderate central, bilateral subarticular recess and mild foraminal st enosis. 4. L4-5: Severe central, bilateral subarticular recess with moderate to severe RIGHT foraminal and mild LEFT foraminal stenosis. 5. L5-S1: Moderate central with severe subarticular recess and RIGHT foraminal stenosis. Significant disc osteophyte contact upon the S1 nerve roots. 6. L1-2 broad-based LEFT paracentral foraminal disc protrusion with significan t contact on the traversing LEFT L2 nerve root. Moderate central with bilateral foraminal stenosis.
== END 2022-12-01 14:25 | disposition home or self-care (01) ==
PROVIDERS: PCP Family Medicine; Visit Provider Family Medicine
DX: M54.16 Radiculopathy, lumbar region (principal); M47.896 Other spondylosis, lumbar region; M48.061 Spinal stenosis, lumbar region without neurogenic claudication
CPT/HCPCS: 72148

== ENCOUNTER → 2023-05-03 14:25 | Outpatient (BNVA) | payer MEDICARE, SELFPAY | PROVIDERS: PCP Family Medicine; Visit Provider Family Medicine | DX: E03.9 Hypothyroidism, unspecified (principal); E78.5 Hyperlipidemia, unspecified; M06.9 Rheumatoid arthritis, unspecified; M54.16 Radiculopathy, lumbar region; R53.1 Weakness; R53.83 Other fatigue; Z13.6 Encounter for screening for cardiovascular disorders | CPT/HCPCS: 80053; 80061; 82607; 84443 ==

== ENCOUNTER → 2024-11-06 10:27 | Outpatient (BNVA) | payer MEDICARE, SELFPAY | PROVIDERS: PCP Family Medicine; Visit Provider Family Medicine | DX: E78.5 Hyperlipidemia, unspecified (principal); H40.9 Unspecified glaucoma; M06.9 Rheumatoid arthritis, unspecified; R53.83 Other fatigue; R53.1 Weakness; E03.9 Hypothyroidism, unspecified | CPT/HCPCS: 80053; 80061; 82306; 82607; 84443; 85025 ==